=== PATIENT | male | born 1955 | race African-American/Black ===

== ENCOUNTER 2017-07-04 09:44 | Emergency (ER) | payer SELFPAY ==
[2017-07-04 13:59] LABS: Basophils % (Auto) 0.8 % (0.0-1.8); Eosinophils % (Auto) 2.4 % (0.0-4.3); Hematocrit 43.7 % (35.5-45.6); Hemoglobin 14.6 gm/dl (11.8-15.2); Mean Corpuscular HGB Conc 33 % (32-34); Mean Corpuscular Hemoglobin 32 pg (28-32); Mean Corpuscular Volume 96 fl (84-94); Platelet Count 278 K/mm3 (140-440); Red Blood Count 4.54 M/mm3 (3.65-5.03); White Blood Count 4.7 K/mm3 (4.5-11.0)
--- NOTE | 2017-07-04 13:59 | Emergency Department Report ---
ED Neck Pain/Injury HPI - General Chief Complaint: Neck Pain/Injury Stated Complaint: NECK SWOLLEN Time Seen by Provider: 07/04/17 13:02 Mode of arrival: Ambulatory Limitations: Language Barrier - History of Present Illness Initial Comments: This is a 62-year-old male accompanied by son nontoxic, well nourished in appearance, no acute signs of distress presents to the ED complaining of left sided lateral neck swelling 6 months. Patient has limited Maltese son is currently translating. Son stated this is an ongoing situation for 6 months. Patient denies any pain to the region. Denies any pus, drainage, stiff neck, headache, blurry vision, chest pain, shortness of breath, numbness, tingling, nausea or vomiting. Patient denies any symptoms. Patient denies recent travels outside the country. Patient denies any allergies or past medical history. MD Complaint: other (left side lateral neck swelling) -: month(s) (6) Severity scale (0 -10): 0 Consistency: constant Improves With: none Worsens With: none Associated Symptoms: none. denies: headache, fever, numbness, tingling, weakness, vertigo, difficulty walking, swollen glands, difficulty swallowing, nausea, vomiting Treatments Prior to Arrival: none - Related Data Allergies Allergy/AdvReac Type Severity Reaction Status Date / Time No Known Allergies Allergy Verified 07/04/17 10:19 ED Review of Systems ROS: Stated complaint: NECK SWOLLEN Other details as noted in HPI Constitutional: denies: chills, fever Eyes: denies: eye pain, eye discharge, vision change ENT: denies: ear pain, throat pain Respiratory: denies: cough, shortness of breath, wheezing Cardiovascular: denies: chest pain, palpitations Endocrine: no symptoms reported Gastrointestinal: denies: abdominal pain, nausea, diarrhea Genitourinary: denies: urgency, dysuria Musculoskeletal: denies: back pain, joint swelling, arthralgia Skin: denies: rash, lesions Neurological: denies: headache, weakness, paresthesias Psychiatric: denies: anxiety, depression Hematological/Lymphatic: denies: easy bleeding, easy bruising ED Past Medical Hx - Past Medical History Previous Medical History?: No - Surgical History Past Surgical History?: No - Social History Smoking Status: Never Smoker Substance Use Type: Alcohol ED Physical Exam - General Limitations: Language Barrier General appearance: alert, in no apparent distress - Head Head exam: Present: atraumatic, normocephalic, normal inspection - Eye Eye exam: Present: normal appearance, PERRL, EOMI. Absent: scleral icterus, conjunctival injection, nystagmus, periorbital swelling, periorbital tenderness Pupils: Present: normal accommodation - ENT ENT exam: Present: normal exam, normal orophraynx, mucous membranes moist, TM's normal bilaterally, normal external ear exam - Neck Neck exam: Present: normal inspection, full ROM, other (left-sided lateral nodular swelling. No induration or flutance noted. Non mobile. No tenderness. No surrounding erythema or cellulitis noted. ). Absent: tenderness, meningismus , lymphadenopathy, thyromegaly - Respiratory Respiratory exam: Present: normal lung sounds bilaterally. Absent: respiratory distress, wheezes, rales, rhonchi, stridor, chest wall tenderness, accessory muscle use, decreased breath sounds, prolonged expiratory - Cardiovascular Cardiovascular Exam: Present: regular rate, normal rhythm, normal heart sounds. Absent: bradycardia, tachycardia, irregular rhythm, systolic murmur, diastolic murmur, rubs, gallop - GI/Abdominal GI/Abdominal exam: Present: soft, normal bowel sounds. Absent: distended, tenderness, guarding, rebound, rigid, diminished bowel sounds - Rectal Rectal exam: Present: deferred - Extremities Exam Extremities exam: Present: normal inspection, full ROM, normal capillary refill. Absent: tenderness, pedal edema, joint swelling, calf tenderness - Back Exam Back exam: Present: normal inspection, full ROM. Absent: tenderness, CVA tenderness (R), CVA tenderness (L), muscle spasm, paraspinal tenderness, vertebral tenderness, rash noted - Neurological Exam Neurological exam: Present: alert, oriented X3, CN II-XII intact, normal gait, reflexes normal - Psychiatric Psychiatric exam: Present: normal affect, normal mood - Skin Skin exam: Present: warm, dry, intact, normal color. Absent: rash ED Course Vital Signs 07/04/17 07/04/17 10:16 14:06 Temperature 98.0 F Pulse Rate 53 L 53 L Respiratory 18 16 Rate Blood Pressure 135/83 140/85 O2 Sat by Pulse 98 99 Oximetry - Reevaluation(s) Reevaluation #1: 07/04/17 14:01 Patient is speaking in full sentences with no signs of distress noted. ED Medical Decision Making - Lab Data Result diagrams: 07/04/17 13:42 07/04/17 13:42 - Medical Decision Making 62-year-old male presents with a nodular left-sided neck swelling. Patient's son is currently present and is translating for the patient. CT with contrast of the neck soft tissue has been obtained and dictated by radiologist. A bulky bilateral lymphadenopathy. 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 Patient was notified of CT findings with no further questions noted by the patient. Patient was referred to follow up with a primary care doctor/surgery in 3-5 days or if symptoms worsen and continue return to emergency room as soon as possible. Patient is hemodynamically stable with stable vital signs. At time time of discharge, the patient does not seem toxic or ill in appearance. No acute signs of distress noted. Patient agrees to discharge treatment plan of care. No further questions noted by the patient. Patient was given his copy of CT results Critical care attestation.: If time is entered above; I have spent that time in minutes in the direct care of this critically ill patient, excluding procedure time. ED Disposition Clinical Impression: Lymphadenopathy Lymphoma Qualifiers: Lymphoma type: unspecified type Lymphoma site: neck Qualified Code(s): C85.91 - Non-Hodgkin lymphoma, unspecified, lymph nodes of head, face, and neck Disposition: DC-01 TO HOME OR SELFCARE Is pt being admited?: No Does the pt Need Aspirin: No Condition: Stable Instructions: Lymphadenopathy (ED) Additional Instructions: Follow-up with a primary care doctor in 3-5 days or if symptoms worsen and continue return to emergency room as soon as possible possible. Referrals: ERIK BHANDARI MD [Primary Care Provider] - 3-5 Days RAMÓN LITTLE MD [Staff Physician] - 3-[address] [facility] [Outside] - 3-5 Days [facility] [Outside] - 3-5 Days
[2017-07-04 14:13] LABS: Anion Gap 15 mmol/L; BUN/Creatinine Ratio 20; Blood Urea Nitrogen 10 mg/dL (9-20); Calcium 9.5 mg/dL (8.4-10.2); Carbon Dioxide 29 mmol/L (22-30); Chloride 101.1 mmol/L (98-107); Glucose 90 mg/dL (75-100); Potassium 4.2 mmol/L (3.6-5.0); Sodium 141 mmol/L (137-145)
--- NOTE | 2017-07-04 16:31 | Cat Scan Report ---
CT of the neck with IV contrast. History: Left neck mass. Findings: The parotid and submandibular glands appear normal. There is bulky bilateral lymphadenopathy beginning in the jugular region and extending caudally. The largest node in the right neck measures 2.5 cm in diameter and on the left the largest node measures 2 x 4 cm. Numerous smaller nodes are seen caudally in the posterior triangle. No glottic or subglottic abnormalities are seen. The airway is patent. The thyroid is unremarkable. Impression: Bulky bilateral lymphadenopathy. These findings are highly suspicious for a neoplastic process, most likely lymphoma.
[2017-07-04 16:54] VITALS: BP 141/88
== END 2017-07-04 16:54 | disposition home or self-care (01) ==
LOC: ED 09:44
DX: C85.91 Non-Hodgkin lymphoma, unspecified, lymph nodes of head, face, and neck (principal); R59.1 Generalized enlarged lymph nodes
CPT/HCPCS: 36415; 70491; 80048; 85025; 99284; Q9967